=== PATIENT | male | born 1965 | race Caucasian/White ===

== ENCOUNTER 2023-07-09 22:09 | Emergency (ER) | payer MEDICAID, SELFPAY ==
[2023-07-09 22:13] VITALS: BP 166/82; PULSE 77; RESP 16; TEMP 36.7; O2SAT 96
--- NOTE | 2023-07-09 22:20 | CTR_ITS ---
PROCEDURE INFORMATION: Exam: CT Head Without Contrast Exam date and time: 07/09/2023 10:51 PM Age: 58 years old Clinical indication: Speech disturbance; Patient HX: Patient says he had mini stroke last year; Additional info: Patient says his coworkers told him he was slurring his words today and the left side of his face was drooping. TECHNIQUE: Imaging protocol: Computed tomography of the head without contrast. Radiation optimization: All CT scans at this facility use at least one of these dose optimization techniques: automated exposure control; mA and/or kV adjustment per patient size (includes targeted exams where dose is matched to clinical indication); or iterative reconstruction. COMPARISON: No relevant prior studies available. RADIATION DOSE METRICS: Total DLP (mGy-cm): 1070 FINDINGS: Brain: Negative for intracranial hemorrhage. Bandlike region of encephalomalacia with gliosis in the right parietal lobe. Additional rounded area of decreased attenuation near the right insula.There is mild cerebral atrophy. Negative for midline shift of brain. Cerebral ventricles: No ventriculomegaly. Paranasal sinuses: Visualized sinuses are unremarkable. No fluid levels. Mastoid air cells: Visualized mastoid air cells are well aerated. Bones/joints: Unremarkable. No acute fracture. Soft tissues: Unremarkable. CT/CT head wo con* [id number] IMPRESSION: 1. 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 2. Age indeterminate ischemic changes near the right insula. Recommend brain MRI correlation. 3. Negative for intracranial hemorrhage.
--- NOTE | 2023-07-09 22:20 | XRR_ITS ---
PROCEDURE INFORMATION: Exam: XR Chest Exam date and time: 07/09/2023 10:51 PM Age: 58 years old Clinical indication: Other: AMS TECHNIQUE: Imaging protocol: Radiologic exam of the chest. Views: 1 view. COMPARISON: No relevant prior studies available. FINDINGS: Lungs: Unremarkable. No consolidation. Pleural spaces: Unremarkable. No pleural effusion. No pneumothorax. Heart/Mediastinum: Unremarkable. No cardiomegaly. Bones/joints: Unremarkable. XR/XR chest 1V portable [id number] IMPRESSION: No acute findings.
--- NOTE | 2023-07-09 22:20 | W.ED.GENADLT ---
HPI - General Adult General: Chief complaint: General Medical Stated complaint: Slurred Words\Mouth disformed \Possible Stroke Time Seen by Provider: 07/09/23 22:17 History of Present Illness: 58-year-old male presents to the emergency department stating that approximately noon today while at work 2 of his coworkers told him they felt like he had slurred speech and left-sided facial weakness. He states that he continued to work throughout the day and then when he got home his stated she wanted to have him evaluated and he agreed to come to the emergency department. Patient states he is not currently having any difficulties his speech is normal his NIH score is 0. He has no complaints at present. He denies headache, chest pain, nausea vomiting fevers chills or night sweats. He states he was told that he had had a stroke a little over a year ago. Associated symptoms: Deny chest pain, confusion, dyspnea or headache(s) Review of Systems General: Reports: 10 or more systems reviewed and unremarkable except in HPI and below Card: Denies: chest pain or irregular heart rhythm Resp: Denies: dyspnea or non-productive cough Musc: Denies: neck pain, back pain or extremity pain Neuro: Reports: Slurred speech present; Denies: headache(s), weakness in extremities, sensory changes, lack of coordination, difficulty walking, vertigo or confusion Physical Exam Narrative: EXAM NARRATIVE: Constitutional: the patient appears well nourished and with normal development. Vital signs reviewed as documented. HENMT: Normocephalic, atraumatic. External ears normal appearance without drainage. Nose without drainage, normal appearance. Mucus membranes moist. Neck is supple, No jugular venous distension, trachea is midline, no appreciable carotid bruits. No lymphadenopathy. No meningeal signs. Flexion, extension and lateral rotation is without pain. Eyes: Pupils are equal, round, reactive to light and accommodation. No scleral icterus. Extra-ocular movement are intact. Thorax is symmetrical and with equal rise and fall with respirations. Resp: Lungs are clear to auscultation. No wheezes, rales, crackles or ronchi at present. Cardio: Regular rate and rhythm. Positive S1, S2. No appreciable murmurs, rubs or gallops. GI: Abdominal exam reveals normal bowel sounds to all quadrants. No organomegaly. No obvious palpable masses noted. No hepatomegally appreciated. Soft, non-tender to palpation. Extremity: Extremities are non-edematous and both femoral and pedal pulses are 2+ and equal bilaterally. Moves all extremities well, sensation in all extremities. Neuro: Alert and oriented x4, person, place, time and situation. Cranial nerves II through XII are grossly intact, there is no focal neurological deficits that I can appreciate at present. Sensation intact to all extremities. 2-point discrimination intact. Light touch intact to all extremities. Motor strength in the upper and lower extremities are equal and bilateral 5/5. Psych: Cooperative, calm, normal thought process, appropriate judgment. Skin: No lesions, rashes. No gross abnormalities noted. Back: Symmetrical, no obvious deformity, No CVA tenderness Course Vital Signs: Vital signs: Vital Signs Temperature 98.1 F 07/09/23 22:13 Pulse Rate 77 07/09/23 22:13 Respiratory Rate 16 07/09/23 22:13 Blood Pressure 150/88 07/10/23 00:26 Pulse Oximetry 96 07/09/23 22:13 [facility] - General Adult Medical Decision Making I will obtain a CBC, CMP, magnesium level as well as a CT scan of the head twelve-lead EKG and chest x-ray to evaluate. Differential Diagnosis TIA, CVA, electrolyte abnormality, Lab Data I reviewed the patient's lab results. 07/09/23 22:22 07/09/23 22:22 Radiology Impressions Chest X-Ray 07/09/23 22:20 IMPRESSION: No acute findings. Head CT 07/09/23 22:20 IMPRESSION: 1. 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 2. Age indeterminate ischemic changes near the right insula. Recommend brain MRI correlation. 3. Negative for intracranial hemorrhage. Laboratory Results WBC 6.44 10^3/uL (3.29-11.43) 07/09/23 22:22 RBC 5.26 10^6/uL (3.85-5.65) 07/09/23 22:22 Hgb 16.10 g/dL (11.27-16.99) 07/09/23 22: Hct 45.0 % (37-53) 07/09/23 22: MCV 85.6 fl (82-101) 07/09/23: MCH 30.6 pg (27-33) 07/09/23 22: MCHC 35.8 g/dL (30-55) 07/09/23: RDW 11.7 % (12.1-15.1) L 07/09/23: Plt Count 274 10^3/cmm (157-399) 07/09/23 22: MPV 8.2 fL (7.4-10.4) 07/09/23: Neut % (Auto) 46.6 % 07/09/23: Lymph % (Auto) 39.4 % 07/09/23: Curry % (Auto) 8.2 % 07/09/23: Eos % (Auto) 4.7 % 07/09/23: Baso % (Auto) 0.9 % 07/09/23: Neut # (Auto) 3.00 10^3/uL (1.8-7.7) 07/09/23: Lymph # (Auto) 2.5 10^3/uL (0.8-4.8) 07/09/23: Curry # (Auto) 0.5 10^3/uL (0.2-0.9) 07/09/23: Eos # (Auto) 0.3 10^3/uL (0.0-0.8) 07/09/23: Baso # (Auto) 0.1 10^3/uL (0.0-0.1) 07/09/23: Nucleated RBC % (auto) 0 % 07/09/23: Nucleated RBCs # 0.0 /100WBC 07/09/23: PT 12.70 SECONDS (12.1-14.9) 07/09/23 22: INR 0.92 (0.8-1.2) 07/09/23: APTT 28.6 SECONDS (23.9-36.7) 07/09/23 22: Sodium 138 mmol/L (136-145) 07/09/23: Potassium 3.8 mmol/L (3.5-5.1) 07/09/23: Chloride 103 mmol/L (98-107) 07/09/23: Carbon Dioxide 22 mmol/L (22-29) 07/09/23 22:22 Anion Gap 16.8 (5-19) 07/09/23 22:22 BUN 13 mg/dL (6-20) 07/09/23 22:22 Creatinine 0.8 mg/dL (0.7-1.2) 07/09/23 22:22 GFR Calculation 100.0 mL/min (90-130) 07/09/23 22:22 Glucose 98 mg/dL (65-115) 07/09/23 22:22 Calculated Osmolality 286 mOsm/kg (285-295) 07/09/23 22:22 Calcium 8.8 mg/dL (8.5-10.5) 07/09/23 22:22 Magnesium 2.0 mg/dL (1.7-2.3) 07/09/23 22: Total Bilirubin 0.2 mg/dL (0.15-1.2) 07/09/23 22:22 AST 22 U/L (0-40) 07/09/23 22: ALT 29 U/L (0-41) 07/09/23 22:22 Alkaline Phosphatase 109 U/L (40-130) 07/09/23 22:22 NT-Pro-B Natriuret Pep 44 pg/mL (0-125) 07/09/23 22:22 Total Protein 7.1 g/dL (6.6-8.7) 07/09/23 22: Albumin 4.1 g/dL (3.5-5.2) 07/09/23 22:22 Globulin 3.0 g/dL (1.3-4.6) 07/09/23 22: Ethyl Alcohol < 10 mg/dL (0-10) 07/09/23 22:22 All radiology interpretation(s) finalized by discharge Discharge Plan Discharge Patient Disposition: Home Clinical Impression: Hypertension Qualifiers: Hypertension type: unspecified Qualified Code(s): I10 - Essential (primary) hypertension Condition: Stable Prescriptions: New lisinopril 10 mg tablet 10 mg PO DAILY Qty: 90 1RF rosuvastatin 10 mg tablet 10 mg PO DAILY Qty: 90 1RF Discharge Orders: Discharge ED (Routine); Ordered 07/09/23 Ordered By: Ronn Paz Referrals: Leeanne Chavez MD [Physician] - Drew Luz DO [Physician] - Discharge Diet: Low Salt Discharge Activity: Resume usual activity Patient Instructions: Opioid Safety, Pain Management Activity Restrictions/Additional Instructions: Activity Restrictions/Additional Instructions: Thank you for choosing [facility] for your healthcare needs today. Please realize that you were seen in the Emergency Department and that we are providing you with an emergency medical screening exam and this may not be a complete and all inclusive of all the testing and or medical work-up that you may need to determine your ailment or severity of your illness. It is very important that you follow-up as instructed with your Primary care provider or Specialist for additional evaluation and to discuss your medical treatment plan. You may return to the Emergency Department should you have concerns or if your condition changes or worsens in any way. Coding Level of Care Code ED Tool Mach[employer] for Joe Dukes
[2023-07-09 22:56] LABS: Basophils # 0.1 10^3/uL (0.0-0.1); Basophils % 0.9 %; Eosinophils # 0.3 10^3/uL (0.0-0.8); Eosinophils % 4.7 %; Lymphocytes # 2.5 10^3/uL (0.8-4.8); Lymphocytes % 39.4 %; Mean Corpuscular HGB Conc 35.8 g/dL (30-55); Mean Corpuscular Hemoglobin 30.6 pg (27-33); Mean Corpuscular Volume 85.6 fl (82-101); Mean Platelet Volume 8.2 fL (7.4-10.4); Monocytes # 0.5 10^3/uL (0.2-0.9); Monocytes % 8.2 %; Neutrophils % 46.6 %; Nucleated Red Blood Cells % 0 %; Platelet Count 274 10^3/cmm (157-399); Red Blood Count 5.26 10^6/uL (3.85-5.65); Red Cell Distribution Width 11.7 % (12.1-15.1); White Blood Count 6.44 10^3/uL (3.29-11.43)
[2023-07-09 23:13] LABS: INR 0.92 (0.8-1.2); Partial Thromboplastin Time 28.6 SECONDS (23.9-36.7)
[2023-07-09 23:28] LABS: Alanine Aminotransferase 29 U/L (0-41); Albumin Level 4.1 g/dL (3.5-5.2); Alkaline Phosphatase 109 U/L (40-130); Anion Gap 16.8 (5-19); Aspartate Amino Transferase 22 U/L (0-40); Blood Urea Nitrogen 13 mg/dL (6-20); Calcium 8.8 mg/dL (8.5-10.5); Carbon Dioxide 22 mmol/L (22-29); Chloride 103 mmol/L (98-107); Glucose 98 mg/dL (65-115); NT Pro B Type Natriuretic Pept 44 pg/mL (0-125); Osmolality Calculated 286 mOsm/kg (285-295); Potassium 3.8 mmol/L (3.5-5.1); Sodium 138 mmol/L (136-145); Total Bilirubin 0.2 mg/dL (0.15-1.2); Total Protein 7.1 g/dL (6.6-8.7)
[2023-07-09 23:32] LABS: Alcohol Level < 10 mg/dL (0-10)
[2023-07-10 00:26] VITALS: BP 150/88
== END 2023-07-10 00:27 | disposition home or self-care (01) ==
PROVIDERS: Emergency Provider Internal Medicine
DX: I10 Essential (primary) hypertension (principal)
CPT/HCPCS: 70450; 71045; 80053; 80307; 83735; 83880; 85025; 85610; 85730; 99285